=== PATIENT | female | born 1965 | race African-American/Black ===

== ENCOUNTER 2020-02-06 16:04 | Inpatient (IN) | payer MEDICARE, MEDICAID ==
[~2020-02-06] VITALS: Ht 160 cm; Wt 64.9 kg
[2020-02-06] MEDS ORDERED: CLINDAMYCIN 600 MG in DEXTROSE 5% WATER 50 ML IV ONE (16:45)
[2020-02-06] MEDS ORDERED: CEFEPIME 2,000 MG in DEXT 5% WATER 100 ML IV NR (16:45)
[2020-02-06] MEDS ORDERED: CEFEPIME HCL 2000MG/VIAL INJ IV ONE (16:45)
[2020-02-06] MEDS ORDERED: VANCOMYCIN 1 G PREMIX 200 ML IV ONE (16:45)
[2020-02-06] MEDS ORDERED: SODIUM CHLORIDE 0.9% 1000ML BAG (SEPSIS BOLUS) IV ONE (16:45)
[2020-02-06 17:00] LABS: HEMATOCRIT. 30.5 % (36.0-48.0); HEMOGLOBIN. 9.8 g/dL (12.0-16.0); MEAN CORPUSCULAR HEMOGLOBIN 29.6 pg (28.0-32.0); MEAN CORPUSCULAR VOLUME 92.1 fL (81.0-99.0); MEAN PLATELET VOLUME 9.7 fl (7.4-10.4); PLATELET 221 x1000/uL (130-400); RED BLOOD CELL COUNT 3.31 mill/uL (4.2-5.4); RED CELL DISTRIBUTION WIDTH 15.6 % (11.6-14.6)
[2020-02-06 17:05] LABS: CHLORIDE 98 mEq/L (98-107)
[2020-02-06 17:16] LABS: INR 1.2; PROTHROMBIN TIME 12.2 sec (9.6-11.0)
[2020-02-06 17:23] LABS: PLATELET ESTIMATE NORMAL
[2020-02-06] MEDS ORDERED: IOHEXOL-300 100 ML BOTTLE ONE (23:35)
[2020-02-07] VITALS (7 sets, daily range): BP systolic 140–163; BP diastolic 51–71
[2020-02-07] MEDS ORDERED: CLONIDINE 0.1MG TABLET PO PRN ×2 (03:30→14:00)
[2020-02-07] MEDS ORDERED: ACETAMINOPHEN 325MG TABLET PO PRN ×3 (03:30→14:00)
[2020-02-07] MEDS ORDERED: DEXTROSE 50% WATER 50ML SYRINGE IV PRN (03:30)
[2020-02-07] MEDS: BLOOD SUGAR DIAGNOSTIC STRIP TEST SCH ×4 (06:47→21:28)
[2020-02-07] MEDS: INSULIN LISPRO 100 UNITS/ML SUBCUT SCH ×4 (07:50→21:56)
[2020-02-07] MEDS: LISINOPRIL 10MG TABLET PO SCH (09:04)
[2020-02-07] MEDS ORDERED: ZOLPIDEM TARTRATE 5MG TABLET PO PRN (14:00)
[2020-02-07] MEDS ORDERED: ONDANSETRON HCL 4MG/2ML INJ IV PRN (14:00)
[2020-02-07] MEDS ORDERED: DIPHENHYDRAMINE 50MG/ML VIAL IV PRN (14:00)
[2020-02-07] MEDS: SODIUM CHLORIDE 0.9% INJ 3ML FLUSH IVF SCH ×2 (14:55→21:24)
[2020-02-07] MEDS ORDERED: CEFEPIME 500 MG in DEXTROSE 5% WATER 50 ML IV SCH (16:00)
[2020-02-07] MEDS: CEFTAZIDIME PENTAHYDRATE 1 G in DEXTROSE 5% WATER 50 ML IV SCH (21:14)
[2020-02-07] MEDS: METRONIDAZOLE 500MG TABLET PO SCH (21:16)
[2020-02-08] VITALS (7 sets, daily range): BP systolic 112–165; BP diastolic 52–75
[2020-02-08] MEDS: SODIUM CHLORIDE 0.9% INJ 3ML FLUSH IVF SCH ×3 (06:15→22:24)
[2020-02-08] MEDS: BLOOD SUGAR DIAGNOSTIC STRIP TEST SCH ×4 (06:23→21:00)
[2020-02-08 07:02] LABS: BASOPHILS % 0.4 % (0.0-2.0); EOSINOPHILS % 0.9 % (0.0-5.0); HEMATOCRIT. 28.1 % (36.0-48.0); HEMOGLOBIN. 8.8 g/dL (12.0-16.0); LYMPHOCYTES % 8.1 % (20.0-50.0); MEAN CORPUSCULAR HEMOGLOBIN 28.7 pg (28.0-32.0); MEAN CORPUSCULAR VOLUME 91.8 fL (81.0-99.0); MEAN PLATELET VOLUME 10.7 fl (7.4-10.4); MONOCYTES % 5.5 % (2.0-8.0); NEUTROPHILS % 85.1 % (40.0-76.0); PLATELET 212 x1000/uL (130-400); RED BLOOD CELL COUNT 3.06 mill/uL (4.2-5.4)
[2020-02-08] MEDS: INSULIN LISPRO 100 UNITS/ML SUBCUT SCH ×4 (09:11→21:00)
[2020-02-08] MEDS: METRONIDAZOLE 500MG TABLET PO SCH ×2 (09:12→22:24)
[2020-02-08] MEDS: LISINOPRIL 10MG TABLET PO SCH (09:12)
[2020-02-08] MEDS ORDERED: CEFTAZIDIME PENTAHYDRATE 1 G in DEXTROSE 5% WATER 50 ML IV SCH (18:00)
[2020-02-08] MEDS: CEFTAZIDIME PENTAHYDRATE 1 G in DEXTROSE 5% WATER 50 ML IV SCH (22:24)
[2020-02-09] VITALS (8 sets, daily range): BP systolic 137–177; BP diastolic 58–70
[2020-02-09 03:21] LABS: HEMATOCRIT 30.6 % (36.0-48.0); HEMOGLOBIN 9.7 g/dL (12.0-16.0)
[2020-02-09] MEDS: INSULIN LISPRO 100 UNITS/ML SUBCUT SCH ×4 (07:50→21:00)
[2020-02-09] MEDS: BLOOD SUGAR DIAGNOSTIC STRIP TEST SCH ×4 (07:51→21:03)
[2020-02-09] MEDS: LISINOPRIL 10MG TABLET PO SCH (08:29)
[2020-02-09] MEDS: METRONIDAZOLE 500MG TABLET PO SCH ×2 (08:40→20:14)
[2020-02-09] MEDS: SODIUM CHLORIDE 0.9% INJ 3ML FLUSH IVF SCH ×2 (13:34→21:04)
[2020-02-09] MEDS ORDERED: VANCOMYCIN HCL 1 GM/VIAL ONE (15:22)
[2020-02-09] MEDS ORDERED: BACITRACIN 50,000 UNITS/VIAL ONE (15:22)
[2020-02-09] MEDS ORDERED: GLYCOPYRROLATE 0.2 MG/ML 2ML VIAL ONE (16:06)
[2020-02-09] MEDS ORDERED: CEFAZOLIN SODIUM 1000MG/VIAL ONE (16:17)
[2020-02-09] MEDS ORDERED: BUPIVACAINE HCL/PF 0.5% (5MG/ML) 10ML ONE (17:24)
[2020-02-09] MEDS ORDERED: VANCOMYCIN 1 G PREMIX 200 ML IV SCH (17:30)
[2020-02-09] MEDS ORDERED: HYDROCODONE/ACETAMINOPHEN 5/325MG TABLET PO PRN (17:32)
[2020-02-09] MEDS ORDERED: HYDROMORPHONE HCL/PF 2MG/ML CPJ IV PRN ×2 (17:33→17:45)
[2020-02-09] MEDS ORDERED: ONDANSETRON HCL 4MG/2ML INJ IV PRN (17:45)
[2020-02-09] MEDS ORDERED: MEPERIDINE HCL/PF 25MG/ML CPJ IV PRN (17:45)
[2020-02-09] MEDS ORDERED: LABETALOL 5MG/ML SYR 20 MG/4 ML SYRINGE IV PRN (17:45)
[2020-02-09] MEDS: EPOETIN ALFA 4000UNITS/ML VIAL SUBCUT SCH (20:14)
[2020-02-09] MEDS: CEFTAZIDIME PENTAHYDRATE 1 G in DEXTROSE 5% WATER 50 ML IV SCH (21:03)
[2020-02-10] VITALS: BP 152/63
[2020-02-10 04:00] VITALS: BP 155/87
[2020-02-10] MEDS: INSULIN LISPRO 100 UNITS/ML SUBCUT SCH ×4 (07:50→21:15)
[2020-02-10 08:00] VITALS: BP 127/45
[2020-02-10] MEDS: METRONIDAZOLE 500MG TABLET PO SCH (09:18)
[2020-02-10] MEDS: LISINOPRIL 10MG TABLET PO SCH (09:18)
[2020-02-10 12:00] VITALS: BP 124/76
[2020-02-10] MEDS: BLOOD SUGAR DIAGNOSTIC STRIP TEST SCH ×3 (12:05→21:15)
[2020-02-10] MEDS: SODIUM CHLORIDE 0.9% INJ 3ML FLUSH IVF SCH (14:00)
[2020-02-10 16:00] VITALS: BP 130/67
[2020-02-10] MEDS ORDERED: CEFTRIAXONE 2 G in DEXTROSE 5% WATER 50 ML IV SCH (16:00)
[2020-02-10 20:00] VITALS: BP 146/55
[2020-02-11] VITALS: BP 127/56
[2020-02-11] MEDS: SODIUM CHLORIDE 0.9% INJ 3ML FLUSH IVF SCH ×3 (00:18→14:00)
[2020-02-11 04:00] VITALS: BP 132/62
[2020-02-11] MEDS: BLOOD SUGAR DIAGNOSTIC STRIP TEST SCH ×4 (06:17→21:04)
[2020-02-11] MEDS: INSULIN LISPRO 100 UNITS/ML SUBCUT SCH ×4 (06:18→21:53)
[2020-02-11 07:14] LABS: MEAN CORPUSCULAR HEMOGLOBIN 28.9 pg (28.0-32.0); MEAN CORPUSCULAR VOLUME 92.4 fL (81.0-99.0); PLATELET 203 x1000/uL (130-400); RED BLOOD CELL COUNT 2.48 mill/uL (4.2-5.4); RED CELL DISTRIBUTION WIDTH 16.7 % (11.6-14.6)
[2020-02-11 08:00] VITALS: BP 158/65
[2020-02-11 08:00] LABS: HEMOGLOBIN 7.2 g/dL (12.0-16.0)
[2020-02-11] MEDS: LISINOPRIL 10MG TABLET PO SCH (09:04)
[2020-02-11 12:00] VITALS: BP 147/63
[2020-02-11] MEDS ORDERED: CEFAZOLIN XX SCH (15:15)
[2020-02-11 16:00] VITALS: BP 165/66
[2020-02-11] MEDS: DOCUSATE SODIUM 100MG CAPSULE PO SCH (17:39)
[2020-02-11 20:00] VITALS: BP 148/64
[2020-02-11] MEDS ORDERED: CEFAZOLIN 2000MG in DEXTROSE 5% WATER 100ML IV SCH (20:00)
[2020-02-11] MEDS: POLYETHYLENE GLYCOL 3350 (17GM) 1 DOSE PACK PO SCH (21:16)
[2020-02-11] MEDS: EPOETIN ALFA 4000UNITS/ML VIAL SUBCUT SCH (21:55)
[2020-02-12] VITALS: BP 146/59
[2020-02-12 04:00] VITALS: BP 147/56
[2020-02-12] MEDS: BLOOD SUGAR DIAGNOSTIC STRIP TEST SCH ×4 (06:51→21:56)
[2020-02-12] MEDS: SODIUM CHLORIDE 0.9% INJ 3ML FLUSH IVF SCH ×3 (06:51→21:57)
[2020-02-12] MEDS: LISINOPRIL 10MG TABLET PO SCH (08:55)
[2020-02-12] MEDS: DOCUSATE SODIUM 100MG CAPSULE PO SCH ×2 (08:55→17:38)
[2020-02-12] MEDS: INSULIN LISPRO 100 UNITS/ML SUBCUT SCH ×4 (09:20→22:01)
[2020-02-12 16:00] VITALS: BP_SYST 137; BP_SYST 176; BP_DIAS 57; BP_DIAS 60
[2020-02-12 20:00] VITALS: BP 165/56
[2020-02-12] MEDS ORDERED: GABAPENTIN 100MG CAPSULE PO SCH (21:00)
[2020-02-12] MEDS: POLYETHYLENE GLYCOL 3350 (17GM) 1 DOSE PACK PO SCH (21:56)
[2020-02-13] VITALS: BP 180/73
[2020-02-13 04:00] VITALS: BP 143/60
[2020-02-13] MEDS: INSULIN LISPRO 100 UNITS/ML SUBCUT SCH ×2 (06:26→12:05)
[2020-02-13] MEDS: BLOOD SUGAR DIAGNOSTIC STRIP TEST SCH ×2 (06:26→12:05)
[2020-02-13] MEDS: SODIUM CHLORIDE 0.9% INJ 3ML FLUSH IVF SCH (06:26)
[2020-02-13 08:00] VITALS: BP 126/55
[2020-02-13] MEDS: LISINOPRIL 10MG TABLET PO SCH (08:51)
[2020-02-13] MEDS: DOCUSATE SODIUM 100MG CAPSULE PO SCH (08:51)
[2020-02-13 12:00] VITALS: BP 189/87
[2020-02-13 14:51] VITALS: BP 148/65
[2020-02-13 16:00] VITALS: BP 148/65
[2020-02-13] MEDS ORDERED: DEXT 5% IV SCH (20:00)
[2020-02-13] MEDS ORDERED: WATER IV SCH (20:00)
[2020-02-13] MEDS ORDERED: CEFAZOLIN IV SCH (20:00)
== END 2020-02-13 16:44 | DRG 853 ==
LOC: EDSEX 16:04 → ER 16:04 → UNDOADMIN 21:06 → MICUSO 21:06 → EDBEDREQ 21:08 → EDBEDREQSVC 21:08 → EDBEDREQTM 21:08 → 6EST 23:07 → MICUSO 23:09 → 6EST 23:09 → UNDODISIN 02-13 16:39 → 6EST 02-13 16:45 → UNDOADMIN 02-13 16:45 → UNDODISIN 02-13 16:46
PROVIDERS: ADMIT Internal Medicine; ATTEND Internal Medicine
PROC: 0Y6J0Z3 Detachment at Left Lower Leg, Low, Open Approach (ICD-10-PCS; principal; 2020-02-09)
PROC: 30233N1 Transfusion of Nonautologous Red Blood Cells into Peripheral Vein, Percutaneous Approach (ICD-10-PCS; 2020-02-09)
PROC: 5A1D70Z Performance of Urinary Filtration, Intermittent, Less than 6 Hours Per Day (ICD-10-PCS; 2020-02-09)
PROC: 5A1D70Z Performance of Urinary Filtration, Intermittent, Less than 6 Hours Per Day (ICD-10-PCS; 2020-02-11)
PROC: 0JBM0ZZ Excision of Left Upper Leg Subcutaneous Tissue and Fascia, Open Approach (ICD-10-PCS; 2020-02-12)
PROC: 5A1D70Z Performance of Urinary Filtration, Intermittent, Less than 6 Hours Per Day (ICD-10-PCS; 2020-02-13)
DX: A41.9 Sepsis, unspecified organism (principal); L89.223 Pressure ulcer of left hip, stage 3; A48.0 Gas gangrene; M72.6 Necrotizing fasciitis; N18.6 End stage renal disease; E11.52 Type 2 diabetes mellitus with diabetic peripheral angiopathy with gangrene; I12.0 Hypertensive chronic kidney disease with stage 5 chronic kidney disease or end stage renal disease; M86.672 Other chronic osteomyelitis, left ankle and foot; E46 Unspecified protein-calorie malnutrition; N25.81 Secondary hyperparathyroidism of renal origin; D63.8 Anemia in other chronic diseases classified elsewhere; L08.9 Local infection of the skin and subcutaneous tissue, unspecified; E11.319 Type 2 diabetes mellitus with unspecified diabetic retinopathy without macular edema; E11.22 Type 2 diabetes mellitus with diabetic chronic kidney disease; E11.40 Type 2 diabetes mellitus with diabetic neuropathy, unspecified; E78.5 Hyperlipidemia, unspecified; H54.8 Legal blindness, as defined in USA; G54.6 Phantom limb syndrome with pain; L97.529 Non-pressure chronic ulcer of other part of left foot with unspecified severity; R26.9 Unspecified abnormalities of gait and mobility; Z20.828 Contact with and (suspected) exposure to other viral communicable diseases; E11.69 Type 2 diabetes mellitus with other specified complication; Z83.3 Family history of diabetes mellitus; Z99.2 Dependence on renal dialysis; Z89.511 Acquired absence of right leg below knee; Z88.0 Allergy status to penicillin; Z68.25 Body mass index [BMI] 25.0-25.9, adult; Z89.512 Acquired absence of left leg below knee; Z91.19 Patient's noncompliance with other medical treatment and regimen
CPT/HCPCS: 36415; 71045; 73590; 73610; 73630; 73701; 80048; 80053; 80202; 82040; 82962; 83036; 83605; 84134; 84145; 84484; 85014; 85018; 85025; 85027; 85651; 86140; 86850; 86900; 86920; 87426; 88307; 88311; 93005; 93306; 96365; 97162; 97166; 97530; 99291; J0690; J0692; J0696; J0713; J0885; J1815; J3370; J3490; J7030; J7060; L1830; P9016; Q9967

== ENCOUNTER 2020-02-13 16:45 | Inpatient (IN) | payer MEDICARE, MEDICAID ==
[~2020-02-13] VITALS: Ht 160 cm; Wt 63.0 kg
[2020-02-13 20:00] VITALS: BP 167/58
[2020-02-13] MEDS ORDERED: ONDANSETRON HCL 4MG/2ML INJ IV PRN (20:45)
[2020-02-13] MEDS ORDERED: DEXTROSE 50% WATER 50ML SYRINGE IV PRN (20:45)
[2020-02-13 20:52] VITALS: BP 167/58
[2020-02-13] MEDS ORDERED: DIPHENHYDRAMINE 50MG/ML VIAL IV PRN (21:20)
[2020-02-13] MEDS ORDERED: HYDROCODONE/ACETAMINOPHEN 5/325MG TABLET PO PRN (21:23)
[2020-02-13] MEDS ORDERED: HYDROMORPHONE HCL/PF 2MG/ML CPJ IV PRN (21:23)
[2020-02-13] MEDS: POLYETHYLENE GLYCOL 3350 (17GM) 1 DOSE PACK PO SCH (21:30)
[2020-02-13] MEDS: BLOOD SUGAR DIAGNOSTIC STRIP TEST SCH (21:41)
[2020-02-13] MEDS ORDERED: EPOETIN ALFA 4000UNITS/ML VIAL SUBCUT SCH (22:00)
[2020-02-13] MEDS: GABAPENTIN 100MG CAPSULE PO SCH (22:05)
[2020-02-13] MEDS: INSULIN LISPRO 100 UNITS/ML SUBCUT SCH (22:11)
[2020-02-13] MEDS: CEFAZOLIN 3,000 MG in DEXT 5% WATER 100 ML IV SCH (22:58)
[2020-02-13] MEDS: SODIUM CHLORIDE 0.9% INJ 3ML FLUSH IVF SCH (22:58)
[2020-02-14] MEDS: SODIUM CHLORIDE 0.9% INJ 3ML FLUSH IVF SCH ×3 (05:50→21:51)
[2020-02-14] MEDS: BLOOD SUGAR DIAGNOSTIC STRIP TEST SCH ×4 (05:56→21:51)
[2020-02-14 07:04] LABS: CHLORIDE 102 mEq/L (98-107)
[2020-02-14 07:08] LABS: BASOPHILS % 0.7 % (0.0-2.0); EOSINOPHILS % 2.2 % (0.0-5.0); HEMATOCRIT. 22.4 % (36.0-48.0); HEMOGLOBIN. 7.1 g/dL (12.0-16.0); LYMPHOCYTES % 12.3 % (20.0-50.0); MEAN CORPUSCULAR HEMOGLOBIN 29.7 pg (28.0-32.0); MEAN CORPUSCULAR VOLUME 94.3 fL (81.0-99.0); MEAN PLATELET VOLUME 9.6 fl (7.4-10.4); MONOCYTES % 9.3 % (2.0-8.0); NEUTROPHILS % 75.5 % (40.0-76.0); PLATELET 221 x1000/uL (130-400); RED BLOOD CELL COUNT 2.38 mill/uL (4.2-5.4); RED CELL DISTRIBUTION WIDTH 17.1 % (11.6-14.6)
[2020-02-14 08:00] VITALS: BP 143/67
[2020-02-14] MEDS: DOCUSATE SODIUM 100MG CAPSULE PO SCH ×2 (08:36→16:13)
[2020-02-14] MEDS: LISINOPRIL 10MG TABLET PO SCH (08:36)
[2020-02-14] MEDS: INSULIN LISPRO 100 UNITS/ML SUBCUT SCH ×4 (08:37→21:56)
[2020-02-14] MEDS ORDERED: BISACODYL 10MG SUPP PR NR (09:45)
[2020-02-14 20:00] VITALS: BP 168/65
[2020-02-14] MEDS: POLYETHYLENE GLYCOL 3350 (17GM) 1 DOSE PACK PO SCH (21:00)
[2020-02-14] MEDS: GABAPENTIN 100MG CAPSULE PO SCH (21:48)
[2020-02-15] MEDS: SODIUM CHLORIDE 0.9% INJ 3ML FLUSH IVF SCH ×3 (05:29→22:23)
[2020-02-15] MEDS: BLOOD SUGAR DIAGNOSTIC STRIP TEST SCH ×4 (05:37→20:57)
[2020-02-15] MEDS: INSULIN LISPRO 100 UNITS/ML SUBCUT SCH ×4 (06:03→21:28)
[2020-02-15 06:04] LABS: PHOSPHORUS 3.4 mg/dL (2.5-4.9)
[2020-02-15 06:16] LABS: FOLIC ACID (FOLATE) SERUM 5.3 ng/mL (>5.38)
[2020-02-15 07:46] LABS: BASOPHILS % 0.9 % (0.0-2.0); EOSINOPHILS % 1.8 % (0.0-5.0); HEMATOCRIT. 21.8 % (36.0-48.0); LYMPHOCYTES % 12.1 % (20.0-50.0); MEAN CORPUSCULAR HEMOGLOBIN 29.6 pg (28.0-32.0); MEAN CORPUSCULAR VOLUME 93.9 fL (81.0-99.0); MEAN PLATELET VOLUME 9.1 fl (7.4-10.4); MONOCYTES % 7.1 % (2.0-8.0); NEUTROPHILS % 78.1 % (40.0-76.0); PLATELET 214 x1000/uL (130-400); RED BLOOD CELL COUNT 2.32 mill/uL (4.2-5.4); RED CELL DISTRIBUTION WIDTH 16.7 % (11.6-14.6)
[2020-02-15 07:53] LABS: HEMOGLOBIN. 6.9 g/dL (12.0-16.0)
[2020-02-15 08:30] VITALS: BP 152/62
[2020-02-15] MEDS: DOCUSATE SODIUM 100MG CAPSULE PO SCH ×2 (09:23→16:25)
[2020-02-15] MEDS: LISINOPRIL 10MG TABLET PO SCH (09:23)
[2020-02-15] MEDS: CYANOCOBALAMIN/FA/PYRIDOXINE TABLET PO SCH (14:00)
[2020-02-15] MEDS: FOLIC ACID/VITAMIN B COMP W-C TABLET PO SCH (16:26)
[2020-02-15 20:00] VITALS: BP 153/61
[2020-02-15] MEDS: GABAPENTIN 100MG CAPSULE PO SCH (20:54)
[2020-02-15] MEDS: POLYETHYLENE GLYCOL 3350 (17GM) 1 DOSE PACK PO SCH ×2 (21:00→22:23)
[2020-02-16] MEDS: BLOOD SUGAR DIAGNOSTIC STRIP TEST SCH ×4 (05:47→21:00)
[2020-02-16] MEDS: SODIUM CHLORIDE 0.9% INJ 3ML FLUSH IVF SCH ×3 (05:47→22:08)
[2020-02-16] MEDS: LISINOPRIL 10MG TABLET PO SCH (09:08)
[2020-02-16] MEDS: DOCUSATE SODIUM 100MG CAPSULE PO SCH ×2 (09:08→17:50)
[2020-02-16] MEDS: FOLIC ACID/VITAMIN B COMP W-C TABLET PO SCH (09:08)
[2020-02-16] MEDS: CYANOCOBALAMIN/FA/PYRIDOXINE TABLET PO SCH (09:09)
[2020-02-16] MEDS: INSULIN LISPRO 100 UNITS/ML SUBCUT SCH ×4 (09:10→22:05)
[2020-02-16] MEDS: FOLIC ACID 1MG TABLET PO SCH (13:29)
[2020-02-16 16:25] VITALS: BP 196/75
[2020-02-16 16:45] VITALS: BP 165/67
[2020-02-16 17:21] VITALS: BP 197/86
[2020-02-16] MEDS: GABAPENTIN 100MG CAPSULE PO SCH (17:50)
[2020-02-16] MEDS: CLONIDINE 0.1MG TABLET PO PRN (17:50)
[2020-02-16 20:00] VITALS: BP 154/61
[2020-02-16] MEDS: EPOETIN ALFA 10000UNITS/ML VIAL SUBCUT SCH (21:41)
[2020-02-16] MEDS: POLYETHYLENE GLYCOL 3350 (17GM) 1 DOSE PACK PO SCH (21:46)
[2020-02-16] MEDS: CEFAZOLIN 2,000 MG in DEXT 5% WATER 100 ML IV SCH (21:48)
[2020-02-17 06:47] LABS: BASOPHILS % 1.2 % (0.0-2.0); EOSINOPHILS % 2.1 % (0.0-5.0); HEMATOCRIT. 26.7 % (36.0-48.0); HEMOGLOBIN. 8.6 g/dL (12.0-16.0); LYMPHOCYTES % 12.9 % (20.0-50.0); MEAN CORPUSCULAR HEMOGLOBIN 29.6 pg (28.0-32.0); MEAN CORPUSCULAR VOLUME 91.8 fL (81.0-99.0); MONOCYTES % 8.4 % (2.0-8.0); NEUTROPHILS % 75.4 % (40.0-76.0); PLATELET 245 x1000/uL (130-400); RED BLOOD CELL COUNT 2.91 mill/uL (4.2-5.4); RED CELL DISTRIBUTION WIDTH 16.4 % (11.6-14.6)
[2020-02-17] MEDS: SODIUM CHLORIDE 0.9% INJ 3ML FLUSH IVF SCH ×3 (06:54→21:38)
[2020-02-17] MEDS: INSULIN LISPRO 100 UNITS/ML SUBCUT SCH ×4 (07:04→21:38)
[2020-02-17] MEDS: BLOOD SUGAR DIAGNOSTIC STRIP TEST SCH ×4 (07:05→21:28)
[2020-02-17 08:00] VITALS: BP 165/66
[2020-02-17] MEDS: DOCUSATE SODIUM 100MG CAPSULE PO SCH ×2 (08:11→16:50)
[2020-02-17] MEDS: LISINOPRIL 10MG TABLET PO SCH (08:11)
[2020-02-17] MEDS: GABAPENTIN 100MG CAPSULE PO SCH ×2 (08:11→21:28)
[2020-02-17] MEDS: FOLIC ACID 1MG TABLET PO SCH (08:11)
[2020-02-17] MEDS: CYANOCOBALAMIN/FA/PYRIDOXINE TABLET PO SCH (08:11)
[2020-02-17] MEDS: FOLIC ACID/VITAMIN B COMP W-C TABLET PO SCH (08:11)
[2020-02-17 20:00] VITALS: BP 153/59
[2020-02-17] MEDS: POLYETHYLENE GLYCOL 3350 (17GM) 1 DOSE PACK PO SCH (21:00)
[2020-02-18] MEDS: BLOOD SUGAR DIAGNOSTIC STRIP TEST SCH ×4 (06:55→21:00)
[2020-02-18] MEDS: SODIUM CHLORIDE 0.9% INJ 3ML FLUSH IVF SCH ×3 (06:56→22:29)
[2020-02-18] MEDS: INSULIN LISPRO 100 UNITS/ML SUBCUT SCH ×4 (07:00→22:54)
[2020-02-18 07:47] VITALS: BP 159/62
[2020-02-18] MEDS: CYANOCOBALAMIN/FA/PYRIDOXINE TABLET PO SCH (09:11)
[2020-02-18] MEDS: FOLIC ACID/VITAMIN B COMP W-C TABLET PO SCH (09:11)
[2020-02-18] MEDS: DOCUSATE SODIUM 100MG CAPSULE PO SCH ×2 (09:11→16:15)
[2020-02-18] MEDS: LISINOPRIL 10MG TABLET PO SCH (09:11)
[2020-02-18] MEDS: FOLIC ACID 1MG TABLET PO SCH (09:11)
[2020-02-18 19:36] VITALS: BP 136/67
[2020-02-18] MEDS: POLYETHYLENE GLYCOL 3350 (17GM) 1 DOSE PACK PO SCH (21:00)
[2020-02-18] MEDS: GABAPENTIN 100MG CAPSULE PO SCH (22:28)
[2020-02-18] MEDS: CEFAZOLIN 2,000 MG in DEXT 5% WATER 100 ML IV SCH (22:29)
[2020-02-18] MEDS: EPOETIN ALFA 10000UNITS/ML VIAL SUBCUT SCH (22:38)
[2020-02-18] MEDS: INSULIN GLARGINE UD 100 UNITS/ML SYR SUBCUT SCH (22:54)
[2020-02-19] MEDS: BLOOD SUGAR DIAGNOSTIC STRIP TEST SCH ×4 (06:03→21:00)
[2020-02-19] MEDS: SODIUM CHLORIDE 0.9% INJ 3ML FLUSH IVF SCH ×3 (06:03→22:03)
[2020-02-19] MEDS: INSULIN LISPRO 100 UNITS/ML SUBCUT SCH ×4 (06:09→17:32)
[2020-02-19 07:33] VITALS: BP 134/60
[2020-02-19 08:02] LABS: BASOPHILS % 0.6 % (0.0-2.0); HEMATOCRIT. 26.7 % (36.0-48.0); HEMOGLOBIN. 8.4 g/dL (12.0-16.0); LYMPHOCYTES % 11.9 % (20.0-50.0); MEAN CORPUSCULAR HEMOGLOBIN 29.5 pg (28.0-32.0); MEAN CORPUSCULAR VOLUME 93.8 fL (81.0-99.0); MEAN PLATELET VOLUME 9.4 fl (7.4-10.4); MONOCYTES % 7.7 % (2.0-8.0); NEUTROPHILS % 77.8 % (40.0-76.0); PLATELET 180 x1000/uL (130-400); RED BLOOD CELL COUNT 2.85 mill/uL (4.2-5.4); RED CELL DISTRIBUTION WIDTH 16.4 % (11.6-14.6)
[2020-02-19 08:09] LABS: 25-HYDROXY VITAMIN D3 4.4 ng/mL (.)
[2020-02-19] MEDS: FOLIC ACID 1MG TABLET PO SCH (08:16)
[2020-02-19] MEDS: FOLIC ACID/VITAMIN B COMP W-C TABLET PO SCH (08:16)
[2020-02-19] MEDS: CYANOCOBALAMIN/FA/PYRIDOXINE TABLET PO SCH (08:16)
[2020-02-19] MEDS: DOCUSATE SODIUM 100MG CAPSULE PO SCH ×2 (08:16→16:37)
[2020-02-19] MEDS: LISINOPRIL 10MG TABLET PO SCH (08:16)
[2020-02-19] MEDS ORDERED: INFLUENZA VACCINE 05/PF 0.5 ML VIAL IM ONE (11:00)
[2020-02-19] MEDS ORDERED: INSULIN LISPRO 100 UNITS/ML SUBCUT SCH ×2 (13:00)
[2020-02-19] MEDS: ERGOCALCIFEROL 50000UNITS CAPSULE PO SCH (16:38)
[2020-02-19 20:00] VITALS: BP 151/63
[2020-02-19] MEDS: POLYETHYLENE GLYCOL 3350 (17GM) 1 DOSE PACK PO SCH (21:00)
[2020-02-19] MEDS: GABAPENTIN 100MG CAPSULE PO SCH (22:03)
[2020-02-19] MEDS: INSULIN GLARGINE UD 100 UNITS/ML SYR SUBCUT SCH (22:30)
[2020-02-20] MEDS: BLOOD SUGAR DIAGNOSTIC STRIP TEST SCH ×4 (06:05→21:07)
[2020-02-20] MEDS: SODIUM CHLORIDE 0.9% INJ 3ML FLUSH IVF SCH ×3 (06:05→20:24)
[2020-02-20] MEDS: INSULIN LISPRO 100 UNITS/ML SUBCUT SCH ×6 (07:00→17:41)
[2020-02-20 08:03] VITALS: BP 146/87
[2020-02-20] MEDS: FOLIC ACID 1MG TABLET PO SCH (09:19)
[2020-02-20] MEDS: FOLIC ACID/VITAMIN B COMP W-C TABLET PO SCH (09:19)
[2020-02-20] MEDS: LISINOPRIL 10MG TABLET PO SCH (09:19)
[2020-02-20] MEDS: CYANOCOBALAMIN/FA/PYRIDOXINE TABLET PO SCH (09:19)
[2020-02-20] MEDS: DOCUSATE SODIUM 100MG CAPSULE PO SCH ×2 (15:58→17:00)
[2020-02-20 20:00] VITALS: BP 163/64
[2020-02-20] MEDS: CEFAZOLIN 3,000 MG in DEXT 5% WATER 100 ML IV SCH (20:24)
[2020-02-20] MEDS: POLYETHYLENE GLYCOL 3350 (17GM) 1 DOSE PACK PO SCH (20:24)
[2020-02-20] MEDS ORDERED: EPOETIN ALFA 10000UNITS/ML VIAL SUBCUT SCH (21:00)
[2020-02-20] MEDS: GABAPENTIN 100MG CAPSULE PO SCH (21:04)
[2020-02-20] MEDS: FAMOTIDINE 20MG TABLET PO SCH (21:05)
[2020-02-20] MEDS: EPOETIN ALFA-EPBX 10,000 UNIT/ML VIAL SUBCUT SCH (21:11)
[2020-02-20] MEDS: INSULIN GLARGINE UD 100 UNITS/ML SYR SUBCUT SCH (22:19)
[2020-02-21] MEDS: SODIUM CHLORIDE 0.9% INJ 3ML FLUSH IVF SCH ×3 (06:06→22:09)
[2020-02-21] MEDS: BLOOD SUGAR DIAGNOSTIC STRIP TEST SCH ×4 (06:08→20:50)
[2020-02-21] MEDS: INSULIN LISPRO 100 UNITS/ML SUBCUT SCH ×6 (06:11→17:24)
[2020-02-21 06:58] LABS: BASOPHILS % 1.1 % (0.0-2.0); EOSINOPHILS % 3.4 % (0.0-5.0); HEMATOCRIT. 26.1 % (36.0-48.0); HEMOGLOBIN. 8.3 g/dL (12.0-16.0); LYMPHOCYTES % 14.8 % (20.0-50.0); MEAN CORPUSCULAR HEMOGLOBIN 29.9 pg (28.0-32.0); MEAN CORPUSCULAR VOLUME 94.3 fL (81.0-99.0); MEAN PLATELET VOLUME 9.1 fl (7.4-10.4); NEUTROPHILS % 69.7 % (40.0-76.0); PLATELET 158 x1000/uL (130-400); RED BLOOD CELL COUNT 2.76 mill/uL (4.2-5.4); RED CELL DISTRIBUTION WIDTH 16.5 % (11.6-14.6)
[2020-02-21 08:00] VITALS: BP 168/66
[2020-02-21] MEDS: FOLIC ACID 1MG TABLET PO SCH (09:07)
[2020-02-21] MEDS: LISINOPRIL 10MG TABLET PO SCH (09:07)
[2020-02-21] MEDS: DOCUSATE SODIUM 100MG CAPSULE PO SCH ×2 (09:07→17:19)
[2020-02-21] MEDS: FOLIC ACID/VITAMIN B COMP W-C TABLET PO SCH (09:08)
[2020-02-21] MEDS: CYANOCOBALAMIN/FA/PYRIDOXINE TABLET PO SCH (12:52)
[2020-02-21 20:00] VITALS: BP 128/62
[2020-02-21] MEDS: FAMOTIDINE 20MG TABLET PO SCH (20:46)
[2020-02-21] MEDS: GABAPENTIN 100MG CAPSULE PO SCH (20:46)
[2020-02-21] MEDS: POLYETHYLENE GLYCOL 3350 (17GM) 1 DOSE PACK PO SCH (20:50)
[2020-02-21] MEDS: INSULIN GLARGINE UD 100 UNITS/ML SYR SUBCUT SCH (22:25)
[2020-02-22] MEDS: SODIUM CHLORIDE 0.9% INJ 3ML FLUSH IVF SCH ×3 (06:00→21:55)
[2020-02-22] MEDS: BLOOD SUGAR DIAGNOSTIC STRIP TEST SCH ×4 (06:31→21:00)
[2020-02-22] MEDS: INSULIN LISPRO 100 UNITS/ML SUBCUT SCH ×6 (06:44→17:15)
[2020-02-22 08:00] VITALS: BP 168/73
[2020-02-22 08:50] VITALS: BP 168/73
[2020-02-22] MEDS: LISINOPRIL 10MG TABLET PO SCH (08:52)
[2020-02-22] MEDS: FOLIC ACID/VITAMIN B COMP W-C TABLET PO SCH (08:52)
[2020-02-22] MEDS: DOCUSATE SODIUM 100MG CAPSULE PO SCH ×2 (08:52→16:13)
[2020-02-22] MEDS: CYANOCOBALAMIN/FA/PYRIDOXINE TABLET PO SCH (08:52)
[2020-02-22] MEDS: FOLIC ACID 1MG TABLET PO SCH (08:52)
[2020-02-22 20:00] VITALS: BP 153/82
[2020-02-22] MEDS: POLYETHYLENE GLYCOL 3350 (17GM) 1 DOSE PACK PO SCH (21:00)
[2020-02-22] MEDS: FAMOTIDINE 20MG TABLET PO SCH (21:55)
[2020-02-22] MEDS: GABAPENTIN 100MG CAPSULE PO SCH (21:55)
[2020-02-22] MEDS: INSULIN GLARGINE UD 100 UNITS/ML SYR SUBCUT SCH (22:00)
[2020-02-23] MEDS: SODIUM CHLORIDE 0.9% INJ 3ML FLUSH IVF SCH ×3 (05:53→21:44)
[2020-02-23] MEDS: BLOOD SUGAR DIAGNOSTIC STRIP TEST SCH ×4 (05:53→21:44)
[2020-02-23 06:07] LABS: BASOPHILS % 1.2 % (0.0-2.0); EOSINOPHILS % 2.5 % (0.0-5.0); HEMATOCRIT. 25.8 % (36.0-48.0); HEMOGLOBIN. 8.1 g/dL (12.0-16.0); LYMPHOCYTES % 12.8 % (20.0-50.0); MEAN CORPUSCULAR HEMOGLOBIN 30.2 pg (28.0-32.0); MEAN CORPUSCULAR VOLUME 95.4 fL (81.0-99.0); MEAN PLATELET VOLUME 10.2 fl (7.4-10.4); MONOCYTES % 11.2 % (2.0-8.0); NEUTROPHILS % 72.3 % (40.0-76.0); PLATELET 164 x1000/uL (130-400); RED CELL DISTRIBUTION WIDTH 16.4 % (11.6-14.6)
[2020-02-23] MEDS: INSULIN LISPRO 100 UNITS/ML SUBCUT SCH ×6 (06:55→16:26)
[2020-02-23 08:00] VITALS: BP 164/92
[2020-02-23] MEDS: DOCUSATE SODIUM 100MG CAPSULE PO SCH ×2 (09:08→16:27)
[2020-02-23] MEDS: CYANOCOBALAMIN/FA/PYRIDOXINE TABLET PO SCH (09:08)
[2020-02-23] MEDS: FOLIC ACID 1MG TABLET PO SCH (09:08)
[2020-02-23] MEDS: LISINOPRIL 10MG TABLET PO SCH (09:08)
[2020-02-23] MEDS: FOLIC ACID/VITAMIN B COMP W-C TABLET PO SCH (09:08)
[2020-02-23 20:00] VITALS: BP 186/86
[2020-02-23] MEDS: FAMOTIDINE 20MG TABLET PO SCH ×2 (21:38→21:55)
[2020-02-23] MEDS: GABAPENTIN 100MG CAPSULE PO SCH ×2 (21:38→21:55)
[2020-02-23] MEDS: CLONIDINE 0.1MG TABLET PO PRN (21:41)
[2020-02-23] MEDS: EPOETIN ALFA-EPBX 10,000 UNIT/ML VIAL SUBCUT SCH (21:44)
[2020-02-23] MEDS: POLYETHYLENE GLYCOL 3350 (17GM) 1 DOSE PACK PO SCH ×2 (21:44→21:54)
[2020-02-23] MEDS: CEFAZOLIN 2,000 MG in DEXT 5% WATER 100 ML IV SCH (22:30)
[2020-02-24] MEDS: SODIUM CHLORIDE 0.9% INJ 3ML FLUSH IVF SCH ×3 (05:25→21:25)
[2020-02-24] MEDS: BLOOD SUGAR DIAGNOSTIC STRIP TEST SCH ×4 (05:41→21:31)
[2020-02-24] MEDS: CLONIDINE 0.1MG TABLET PO PRN (06:08)
[2020-02-24] MEDS: INSULIN LISPRO 100 UNITS/ML SUBCUT SCH ×6 (06:41→17:34)
[2020-02-24 07:20] LABS: BASOPHILS % 1.1 % (0.0-2.0); EOSINOPHILS % 3.3 % (0.0-5.0); HEMATOCRIT. 25.8 % (36.0-48.0); HEMOGLOBIN. 8.3 g/dL (12.0-16.0); LYMPHOCYTES % 15.1 % (20.0-50.0); MEAN CORPUSCULAR HEMOGLOBIN 30.5 pg (28.0-32.0); MEAN CORPUSCULAR VOLUME 95.2 fL (81.0-99.0); MEAN PLATELET VOLUME 10.3 fl (7.4-10.4); MONOCYTES % 10.8 % (2.0-8.0); NEUTROPHILS % 69.7 % (40.0-76.0); PLATELET 177 x1000/uL (130-400); RED BLOOD CELL COUNT 2.71 mill/uL (4.2-5.4); RED CELL DISTRIBUTION WIDTH 18.1 % (11.6-14.6)
[2020-02-24 08:00] VITALS: BP 162/66
[2020-02-24] MEDS: FOLIC ACID 1MG TABLET PO SCH (08:49)
[2020-02-24] MEDS: FOLIC ACID/VITAMIN B COMP W-C TABLET PO SCH (08:49)
[2020-02-24] MEDS: LISINOPRIL 10MG TABLET PO SCH (08:49)
[2020-02-24] MEDS: CYANOCOBALAMIN/FA/PYRIDOXINE TABLET PO SCH (08:50)
[2020-02-24] MEDS: DOCUSATE SODIUM 100MG CAPSULE PO SCH ×2 (08:50→17:27)
[2020-02-24 20:00] VITALS: BP 147/61
[2020-02-24] MEDS: POLYETHYLENE GLYCOL 3350 (17GM) 1 DOSE PACK PO SCH (21:31)
[2020-02-24] MEDS: GABAPENTIN 100MG CAPSULE PO SCH (21:31)
[2020-02-24] MEDS: FAMOTIDINE 20MG TABLET PO SCH (21:31)
[2020-02-24] MEDS ORDERED: INSULIN GLARGINE UD 100 UNITS/ML SYR SUBCUT SCH (22:00)
[2020-02-25] MEDS: BLOOD SUGAR DIAGNOSTIC STRIP TEST SCH ×4 (06:30→20:35)
[2020-02-25] MEDS: SODIUM CHLORIDE 0.9% INJ 3ML FLUSH IVF SCH ×3 (06:30→21:48)
[2020-02-25] MEDS: INSULIN LISPRO 100 UNITS/ML SUBCUT SCH ×6 (06:41→17:42)
[2020-02-25 08:00] VITALS: BP 168/65
[2020-02-25] MEDS: LISINOPRIL 10MG TABLET PO SCH (09:00)
[2020-02-25] MEDS: FOLIC ACID 1MG TABLET PO SCH (09:05)
[2020-02-25] MEDS: CYANOCOBALAMIN/FA/PYRIDOXINE TABLET PO SCH (09:06)
[2020-02-25] MEDS: DOCUSATE SODIUM 100MG CAPSULE PO SCH ×2 (09:06→17:33)
[2020-02-25] MEDS: FOLIC ACID/VITAMIN B COMP W-C TABLET PO SCH (09:06)
[2020-02-25 20:00] VITALS: BP 167/71
[2020-02-25] MEDS ORDERED: GABAPENTIN 100MG CAPSULE PO NR (20:15)
[2020-02-25] MEDS ORDERED: POLYETHYLENE GLYCOL 3350 (17GM) 1 DOSE PACK PO NR (20:15)
[2020-02-25] MEDS ORDERED: FAMOTIDINE 20MG TABLET PO NR (20:15)
[2020-02-25] MEDS: CEFAZOLIN 2,000 MG in DEXT 5% WATER 100 ML IV SCH (20:34)
[2020-02-25] MEDS: EPOETIN ALFA-EPBX 10,000 UNIT/ML VIAL SUBCUT SCH (20:35)
[2020-02-25] MEDS: CLONIDINE 0.1MG TABLET PO PRN (21:48)
[2020-02-25] MEDS: INSULIN GLARGINE UD 100 UNITS/ML SYR SUBCUT SCH (21:48)
[2020-02-26] MEDS: BLOOD SUGAR DIAGNOSTIC STRIP TEST SCH ×4 (05:58→20:28)
[2020-02-26] MEDS: SODIUM CHLORIDE 0.9% INJ 3ML FLUSH IVF SCH ×3 (05:59→21:11)
[2020-02-26 06:00] VITALS: BP 158/70
[2020-02-26] MEDS: INSULIN LISPRO 100 UNITS/ML SUBCUT SCH ×6 (06:31→17:39)
[2020-02-26] MEDS: DOCUSATE SODIUM 100MG CAPSULE PO SCH ×2 (09:50→17:31)
[2020-02-26] MEDS: CLONIDINE 0.1MG TABLET PO PRN (09:50)
[2020-02-26] MEDS: LISINOPRIL 10MG TABLET PO SCH (09:50)
[2020-02-26] MEDS: FOLIC ACID/VITAMIN B COMP W-C TABLET PO SCH (09:50)
[2020-02-26] MEDS: CYANOCOBALAMIN/FA/PYRIDOXINE TABLET PO SCH (09:51)
[2020-02-26] MEDS: FOLIC ACID 1MG TABLET PO SCH (09:51)
[2020-02-26] MEDS: ERGOCALCIFEROL 50000UNITS CAPSULE PO SCH (14:40)
[2020-02-26 20:00] VITALS: BP 161/74
[2020-02-26] MEDS: POLYETHYLENE GLYCOL 3350 (17GM) 1 DOSE PACK PO SCH (20:28)
[2020-02-26] MEDS: GABAPENTIN 100MG CAPSULE PO SCH (20:28)
[2020-02-26] MEDS: FAMOTIDINE 20MG TABLET PO SCH (20:28)
[2020-02-26] MEDS: INSULIN GLARGINE UD 100 UNITS/ML SYR SUBCUT SCH (21:11)
[2020-02-27] MEDS: INSULIN LISPRO 100 UNITS/ML SUBCUT SCH ×6 (05:24→17:38)
[2020-02-27] MEDS: BLOOD SUGAR DIAGNOSTIC STRIP TEST SCH ×4 (05:24→21:14)
[2020-02-27] MEDS: SODIUM CHLORIDE 0.9% INJ 3ML FLUSH IVF SCH ×3 (05:24→21:19)
[2020-02-27 07:10] LABS: BASOPHILS % 1.2 % (0.0-2.0); EOSINOPHILS % 4.1 % (0.0-5.0); HEMATOCRIT. 27.5 % (36.0-48.0); HEMOGLOBIN. 8.6 g/dL (12.0-16.0); MEAN CORPUSCULAR VOLUME 95.9 fL (81.0-99.0); MEAN PLATELET VOLUME 10.1 fl (7.4-10.4); NEUTROPHILS % 65.7 % (40.0-76.0); PLATELET 174 x1000/uL (130-400); RED BLOOD CELL COUNT 2.87 mill/uL (4.2-5.4); RED CELL DISTRIBUTION WIDTH 19.3 % (11.6-14.6)
[2020-02-27 08:00] VITALS: BP 155/72
[2020-02-27] MEDS: CYANOCOBALAMIN/FA/PYRIDOXINE TABLET PO SCH (09:12)
[2020-02-27] MEDS: LISINOPRIL 10MG TABLET PO SCH (09:12)
[2020-02-27] MEDS: FOLIC ACID/VITAMIN B COMP W-C TABLET PO SCH (09:12)
[2020-02-27] MEDS: DOCUSATE SODIUM 100MG CAPSULE PO SCH ×2 (09:12→17:37)
[2020-02-27] MEDS: FOLIC ACID 1MG TABLET PO SCH (09:12)
[2020-02-27 20:00] VITALS: BP 187/75
[2020-02-27] MEDS ORDERED: CEFAZOLIN 3,000 MG in DEXT 5% WATER 100 ML IV SCH (20:00)
[2020-02-27] MEDS: GABAPENTIN 100MG CAPSULE PO SCH (21:00)
[2020-02-27] MEDS: FAMOTIDINE 20MG TABLET PO SCH (21:00)
[2020-02-27] MEDS: POLYETHYLENE GLYCOL 3350 (17GM) 1 DOSE PACK PO SCH (21:00)
[2020-02-27] MEDS: CLONIDINE 0.1MG TABLET PO PRN (21:18)
[2020-02-27] MEDS: EPOETIN ALFA-EPBX 10,000 UNIT/ML VIAL SUBCUT SCH (21:18)
[2020-02-27] MEDS: INSULIN GLARGINE UD 100 UNITS/ML SYR SUBCUT SCH (22:33)
[2020-02-28] MEDS: BLOOD SUGAR DIAGNOSTIC STRIP TEST SCH ×4 (05:48→21:00)
[2020-02-28] MEDS: SODIUM CHLORIDE 0.9% INJ 3ML FLUSH IVF SCH ×3 (05:48→22:27)
[2020-02-28] MEDS: CLONIDINE 0.1MG TABLET PO PRN ×2 (06:30→12:50)
[2020-02-28] MEDS: INSULIN LISPRO 100 UNITS/ML SUBCUT SCH ×6 (06:36→17:03)
[2020-02-28 08:05] VITALS: BP 178/76
[2020-02-28] MEDS: LACTULOSE 20G/30ML UDC PO SCH ×3 (09:00→17:00)
[2020-02-28] MEDS: FOLIC ACID/VITAMIN B COMP W-C TABLET PO SCH (09:36)
[2020-02-28] MEDS: FOLIC ACID 1MG TABLET PO SCH (09:36)
[2020-02-28] MEDS: LISINOPRIL 10MG TABLET PO SCH (09:36)
[2020-02-28] MEDS: DOCUSATE SODIUM 100MG CAPSULE PO SCH ×2 (09:37→17:01)
[2020-02-28] MEDS: CYANOCOBALAMIN/FA/PYRIDOXINE TABLET PO SCH (09:37)
[2020-02-28 12:38] VITALS: BP 176/73
[2020-02-28 14:11] VITALS: BP 169/67
[2020-02-28] MEDS: AMLODIPINE 10MG TABLET PO SCH (14:13)
[2020-02-28 17:19] VITALS: BP 169/74
[2020-02-28 20:00] VITALS: BP 160/66
[2020-02-28] MEDS: FAMOTIDINE 20MG TABLET PO SCH (21:00)
[2020-02-28] MEDS: POLYETHYLENE GLYCOL 3350 (17GM) 1 DOSE PACK PO SCH (21:00)
[2020-02-28] MEDS: GABAPENTIN 100MG CAPSULE PO SCH (21:00)
[2020-02-28] MEDS: MUPIROCIN 2% OINT 22GM NS SCH (22:27)
[2020-02-28] MEDS: INSULIN GLARGINE UD 100 UNITS/ML SYR SUBCUT SCH (22:43)
[2020-02-29] MEDS: SODIUM CHLORIDE 0.9% INJ 3ML FLUSH IVF SCH ×3 (05:55→21:19)
[2020-02-29] MEDS: BLOOD SUGAR DIAGNOSTIC STRIP TEST SCH ×4 (05:55→21:14)
[2020-02-29 08:00] VITALS: BP 165/82
[2020-02-29] MEDS: ACETAMINOPHEN 325MG TABLET PO PRN ×2 (08:35→21:13)
[2020-02-29] MEDS: DOCUSATE SODIUM 100MG CAPSULE PO SCH ×2 (09:00→17:00)
[2020-02-29] MEDS: FOLIC ACID/VITAMIN B COMP W-C TABLET PO SCH (10:44)
[2020-02-29] MEDS: CYANOCOBALAMIN/FA/PYRIDOXINE TABLET PO SCH (10:45)
[2020-02-29] MEDS: AMLODIPINE 10MG TABLET PO SCH (10:45)
[2020-02-29] MEDS: FOLIC ACID 1MG TABLET PO SCH (10:45)
[2020-02-29] MEDS: LISINOPRIL 10MG TABLET PO SCH (10:45)
[2020-02-29] MEDS: MUPIROCIN 2% OINT 22GM NS SCH ×2 (10:46→21:14)
[2020-02-29] MEDS: INSULIN LISPRO 100 UNITS/ML SUBCUT SCH ×6 (10:51→18:22)
[2020-02-29] MEDS: GABAPENTIN 100MG CAPSULE PO SCH (17:00)
[2020-02-29 20:00] VITALS: BP 158/71
[2020-02-29] MEDS: POLYETHYLENE GLYCOL 3350 (17GM) 1 DOSE PACK PO SCH (21:00)
[2020-02-29] MEDS: FAMOTIDINE 20MG TABLET PO SCH (21:00)
[2020-02-29] MEDS: INSULIN GLARGINE UD 100 UNITS/ML SYR SUBCUT SCH (21:17)
[2020-03-01 06:16] LABS: BASOPHILS % 0.7 % (0.0-2.0); EOSINOPHILS % 1.3 % (0.0-5.0); HEMATOCRIT. 25.4 % (36.0-48.0); HEMOGLOBIN. 8.2 g/dL (12.0-16.0); LYMPHOCYTES % 9.6 % (20.0-50.0); MEAN CORPUSCULAR HEMOGLOBIN 31.4 pg (28.0-32.0); MEAN CORPUSCULAR VOLUME 97.3 fL (81.0-99.0); MEAN PLATELET VOLUME 9.7 fl (7.4-10.4); MONOCYTES % 11.9 % (2.0-8.0); NEUTROPHILS % 76.5 % (40.0-76.0); PLATELET 145 x1000/uL (130-400); RED BLOOD CELL COUNT 2.61 mill/uL (4.2-5.4); RED CELL DISTRIBUTION WIDTH 19.2 % (11.6-14.6)
[2020-03-01] MEDS: BLOOD SUGAR DIAGNOSTIC STRIP TEST SCH ×4 (06:52→21:00)
[2020-03-01] MEDS: SODIUM CHLORIDE 0.9% INJ 3ML FLUSH IVF SCH ×3 (06:52→22:51)
[2020-03-01 07:54] VITALS: BP 146/58
[2020-03-01] MEDS: INSULIN LISPRO 100 UNITS/ML SUBCUT SCH ×6 (08:04→17:00)
[2020-03-01] MEDS: MUPIROCIN 2% OINT 22GM NS SCH ×2 (09:28→22:42)
[2020-03-01] MEDS: FOLIC ACID 1MG TABLET PO SCH (09:29)
[2020-03-01] MEDS: DOCUSATE SODIUM 100MG CAPSULE PO SCH ×2 (09:29→18:02)
[2020-03-01] MEDS: FOLIC ACID/VITAMIN B COMP W-C TABLET PO SCH (09:29)
[2020-03-01] MEDS: CYANOCOBALAMIN/FA/PYRIDOXINE TABLET PO SCH (09:29)
[2020-03-01] MEDS: AMLODIPINE 10MG TABLET PO SCH (09:30)
[2020-03-01] MEDS: LISINOPRIL 10MG TABLET PO SCH (09:30)
[2020-03-01] MEDS: GABAPENTIN 100MG CAPSULE PO SCH ×2 (09:31→18:01)
[2020-03-01 20:00] VITALS: BP 155/67
[2020-03-01] MEDS: POLYETHYLENE GLYCOL 3350 (17GM) 1 DOSE PACK PO SCH (21:00)
[2020-03-01] MEDS: INSULIN GLARGINE UD 100 UNITS/ML SYR SUBCUT SCH (22:00)
[2020-03-01] MEDS: EPOETIN ALFA-EPBX 10,000 UNIT/ML VIAL SUBCUT SCH (22:42)
[2020-03-01] MEDS: FAMOTIDINE 20MG TABLET PO SCH (22:43)
[2020-03-02] MEDS: INSULIN LISPRO 100 UNITS/ML SUBCUT SCH ×4 (07:00→13:32)
[2020-03-02] MEDS: BLOOD SUGAR DIAGNOSTIC STRIP TEST SCH ×2 (07:02→11:15)
[2020-03-02] MEDS: SODIUM CHLORIDE 0.9% INJ 3ML FLUSH IVF SCH ×2 (07:06→13:32)
[2020-03-02 07:55] VITALS: BP 145/50
[2020-03-02] MEDS: GABAPENTIN 100MG CAPSULE PO SCH (09:00)
[2020-03-02] MEDS: CYANOCOBALAMIN/FA/PYRIDOXINE TABLET PO SCH (09:16)
[2020-03-02] MEDS: DOCUSATE SODIUM 100MG CAPSULE PO SCH (09:16)
[2020-03-02] MEDS: FOLIC ACID/VITAMIN B COMP W-C TABLET PO SCH (09:17)
[2020-03-02] MEDS: FOLIC ACID 1MG TABLET PO SCH (09:17)
[2020-03-02] MEDS: AMLODIPINE 10MG TABLET PO SCH (09:17)
[2020-03-02] MEDS: MUPIROCIN 2% OINT 22GM NS SCH (09:18)
[2020-03-02] MEDS: LISINOPRIL 10MG TABLET PO SCH (09:18)
[2020-03-02 11:29] VITALS: BP 145/50
== END 2020-03-02 15:15 | disposition home health service (06) | DRG 299 ==
LOC: UNDOADMIN 20:20 → 6EST 20:20
PROVIDERS: ADMIT Physical Medicine & Rehabilitation Spinal Cord Injury Medicine; ATTEND Internal Medicine
DX: E11.52 Type 2 diabetes mellitus with diabetic peripheral angiopathy with gangrene (principal); A40.8 Other streptococcal sepsis; N18.6 End stage renal disease; E46 Unspecified protein-calorie malnutrition; I12.0 Hypertensive chronic kidney disease with stage 5 chronic kidney disease or end stage renal disease; D63.8 Anemia in other chronic diseases classified elsewhere; E11.22 Type 2 diabetes mellitus with diabetic chronic kidney disease; E11.42 Type 2 diabetes mellitus with diabetic polyneuropathy; E11.319 Type 2 diabetes mellitus with unspecified diabetic retinopathy without macular edema; G54.6 Phantom limb syndrome with pain; H54.8 Legal blindness, as defined in USA; L89.229 Pressure ulcer of left hip, unspecified stage; Z22.322 Carrier or suspected carrier of Methicillin resistant Staphylococcus aureus; Z89.511 Acquired absence of right leg below knee; Z89.512 Acquired absence of left leg below knee; Z99.2 Dependence on renal dialysis
CPT/HCPCS: 36415; 80048; 80053; 82306; 82533; 82607; 82728; 82746; 82962; 83540; 83550; 83735; 84100; 84134; 84439; 84443; 84481; 85025; 86376; 86850; 86900; 86920; 90686; 92523; 93970; 97110; 97162; 97166; 97530; 97535; 97542; J0690; J0885; J1815; J2405; J7060; P9016